=== PATIENT | female | born 1970 | race Caucasian/White ===

== ENCOUNTER → 2018-01-24 | Outpatient (CLI) | payer OTHER ==
[~2018-01-24] MED LIST: MULT-506 PO
== END | disposition home or self-care (01) ==
LOC: C.PAPS 18:53
PROVIDERS: ATTEND Obstetrics & Gynecology
DX: Z01.411 Encounter for gynecological examination (general) (routine) with abnormal findings (principal); R87.612 Low grade squamous intraepithelial lesion on cytologic smear of cervix (LGSIL)

== ENCOUNTER 2024-01-13 13:41 | Inpatient (IN) ==
[2024-01-13 14:19] LABS: Basophils # (auto) 0.05 K/uL (0.00-0.20); Basophils % (auto) 0.2 %; Eosinophils # (auto) 0.03 K/uL (0.00-0.50); Eosinophils % (auto) 0.1 %; Hematocrit (blood only) 44.4 % (37.0-47.0); Hemoglobin 15.1 g/dl (12.0-16.0); Immature Granulocytes # (auto) 0.12 K/uL (0.01-0.20); Immature Granulocytes % (auto) 0.6 %; Lymphocytes % (auto) 8.7 %; Mean Corpuscular Hemoglobin 28.4 pg (25.0-34.0); Mean Corpuscular Volume 83.6 fL (80.0-100.0); Monocytes # (auto) 1.58 K/uL (0.11-0.59); Monocytes % (auto) 7.7 %; Neutrophils # (auto) 17.01 K/uL (1.40-6.50); Neutrophils % (auto) 82.7 %; Platelet Count 280 K/uL (130-400); RDW Coefficient of Variation 11.9 % (11.5-14.5); RDW Standard Deviation 35.8 fL (36.4-46.3); Red Blood Count 5.31 M/uL (4.20-5.40); White Blood Count 20.59 K/ul (4.8-10.8)
--- NOTE | 2024-01-13 14:21 | Emergency Department Note ---
Impression & Plan Abdominal pain, RLQ, Leukocytosis, Acute appendicitis with perforation and localized peritonitis ED Provider Note HISTORY OF PRESENT ILLNESS: Patient is a 53-year-old female presenting with right lower quadrant abdominal pain. Patient reports that yesterday she had a dull pain in her right lower quadrant that she did not think much of, as she was vomiting for most of the day. Reports that yesterday she had multiple episodes of vomiting and dry heaving. Denies any diarrhea. Reports that today she woke up and has had increased pain in her right lower quadrant. Reports significant pain with any sort of movement or walking. States that she has felt like she has had to have a bowel movement but has been unable to. Denies any vaginal bleeding or discharge. She reports an abdominal surgical history significant for , but denies any appendectomy or cholecystectomy. Denies any fevers at home. She last tried drinking some Pedialyte around 9 AM this morning. She tried taking some simethicone for the pain and Dramamine for her nausea, without any relief of symptoms. Currently describes the pain as 7 out of 10 and describes it as a sharp constant pressure sensation. Reports the pain does radiate slightly into her right low back. ROS: as above PHYSICAL EXAM: Constitutional: Patient appears in no acute distress. HENT: Head: Normocephalic and atraumatic. Eyes: EOMI, PERRL Mouth/Throat: Mucous membranes moist. Neck: Trachea midline. Neck supple. Cardiovascular: Tachycardic with regular rhythm. No murmurs, rubs or gallops. Intact distal pulses. Pulmonary/Chest: No respiratory distress. Breath sounds clear and equal bilaterally. No wheezes or rales. Abdominal: Abdomen soft. RLQ TTP with guarding. Musculoskeletal: No edema, tenderness or deformity noted. Skin: Warm and dry. No rash, erythema, pallor or cyanosis Psychiatric: Appropriate mood and affect for situation. Neurological: Alert and keenly responsive. CN II-XII grossly intact, moving all extremities equally and fully. MDM: - Vitals signs showed tachycardia - History obtained via patient. History as above. - Chronic conditions affecting care: None - Differential diagnoses include, but are not limited to: Aortic aneurysm; appendicitis; diverticulitis; ovarian cyst; ovarian torsion; ureteral calculi - Order placed for continuous cardiac monitoring. At this time, monitor showed rate of 82 bpm with normal sinus rhythm, per my interpretation. - External medical records reviewed. - Laboratory workup interpreted by myself showed leukocytosis (WBC 20.59) with left shift; slight hyponatremia (Na 133); elevated total bilirubin (1.7); normal lactate; normal lipase; negative hCG - CT abdomen/pelvis with IV contrast showed severe acute appendicitis with apparent mucosal discontinuity near the appendiceal tip concerning for perforation. - Patient given 1L NS and 4 mg IV zofrna for symptoms on arrival. Ordered 50 mcg IV fentanyl for pain, but patient had declined. - Given IV zosyn for antibiotic coverage. 1g IV tylenol ordered for pain control. - Discussed case with Fabiana Ahumada PA-C with general surgery, at 15:05. Plan to come see patient. They saw the patient and reported that they are planning to take the patient to the OR at 15:35. - Patient taken to the OR with general surgery service for appendectomy. ASSESSMENT AND PLAN: Diagnosis: Right lower quadrant abdominal pain; leukocytosis; severe acute appendicitis with perforation and localized peritonitis Plan: to OR Past Med/Surg History Problem List (Updated 01/13/24 @ 15:35 by LORE Hooker) Acute appendicitis Surgical History (Updated 01/13/24 @ 15:47 by Skyla Osullivan RN) History of tubal ligation History of tonsillectomy History of History of endometrial ablation History of rhinoplasty Social History Smoking Status: Never smoker Feels Safe at Home: Yes Allergies Allergies Allergy/AdvReac Type Severity Reaction Status Date / Time codeine AdvReac Unknown VOMITING Verified 02/13/16 11:11 Home Meds Home Medications Medication Instructions Recorded Confirmed Multivitamin 1 tab PO QAM #0 tabs 01/28/16 Results & Data (ED) Vital Signs Vital Signs - 24 hr 01/13/24 13:46 01/13/24 14:04 01/13/24 14:33 Temperature 36.8 C Temperature Source Temporal Artery Scan Pulse Rate 109 H 77 Pulse Rate from SpO2 Sensor 76 Pulse Rhythm Regular Pulse Strength Normal Respiratory Rate 20 18 Respiratory Effort / Characteristics Non-Labored Spontaneous Respiratory Depth Normal Blood Pressure 110/62 Blood Pressure Mean 78 Pulse Oximetry 99 99 99 Oxygen Delivery Method Room Air Room Air Sepsis Recent Fever Within 48 Hours No Sepsis New/Unexplained Change in Mental Status N/A Sepsis Action Taken by Nursing No Action Required 01/13/24 14:45 01/13/24 15:01 01/13/24 15:18 Temperature Temperature Source Pulse Rate 82 92 H Pulse Rate from SpO2 Sensor Pulse Rhythm Pulse Strength Respiratory Rate 15 Respiratory Effort / Characteristics Respiratory Depth Blood Pressure 109/68 Blood Pressure Mean 82 Pulse Oximetry 99 Oxygen Delivery Method Sepsis Recent Fever Within 48 Hours Sepsis New/Unexplained Change in Mental Status Sepsis Action Taken by Nursing Laboratory Data 01/13/24 14:00 01/13/24 14:00 Lab Results 01/13/24 Range/Units 14:00 WBC 20.59 H (4.8-10.8) K/ul RBC 5.31 (4.20-5.40) M/uL Hgb 15.1 (12.0-16.0) g/dl Hct 44.4 (37.0-47.0) % MCV 83.6 (80.0-100.0) fL MCH 28.4 (25.0-34.0) pg MCHC 34.0 (32.0-36.0) g/dL RDW Std Deviation 35.8 L (36.4-46.3) fL RDW Coeff of Mark 11.9 (11.5-14.5) % Plt Count 280 (130-400) K/uL MPV 10.0 (9.4-12.4) fL Immature Gran % (Auto) 0.6 % Neut % (Auto) 82.7 % Lymph % (Auto) 8.7 % Duchesne % (Auto) 7.7 % Eos % (Auto) 0.1 % Baso % (Auto) 0.2 % Neut # (Auto) 17.01 H (1.40-6.50) K/uL Lymph # (Auto) 1.80 (1.20-3.40) K/uL Duchesne # (Auto) 1.58 H (0.11-0.59) K/uL Eos # (Auto) 0.03 (0.00-0.50) K/uL Baso # (Auto) 0.05 (0.00-0.20) K/uL Immature Gran # (Auto) 0.12 (0.01-0.20) K/uL PT 11.4 (9.0-12.0) Seconds INR 1.1 (0.9-1.1) Sodium 133 L (136-145) mmol/L Potassium 3.9 (3.5-5.1) mmol/L Chloride 97 L (98-107) mmol/L Carbon Dioxide 27 (21-32) mmol/L Anion Gap 9 (3-11) BUN 10 (6-23) mg/dl Creatinine 0.97 (0.6-1.2) mg/dl Est Cr Clr Drug Dosing 66.9 ml/min Est GFR ( Amer) 76.7 ml/min Est GFR (Non-Af Amer) 66.2 ml/min BUN/Creatinine Ratio 10.3 (10-20) Glucose 94 (70-99(Fasting)) mg/dl Lactate 1.1 (0.4-2.0) mmol/L Calcium 10.3 (8.6-10.3) mg/dl Total Bilirubin 1.7 H (0.2-1.0) mg/dl AST 17 (13-39) U/L ALT 11 (7-52) U/L Alkaline Phosphatase 40 (34-104) U/L Total Protein 7.6 (6.0-8.3) gm/dl Albumin 4.7 (3.4-5.0) gm/dl Globulin 2.9 (2.5-4.0) gm/dl Albumin/Globulin Ratio 1.6 (0.9-2) Lipase 19 (11-82) U/L HCG, Qual Negative (Negative) Administered Medications Discontinued Medications Fentanyl Citrate (Fentanyl Citrate Pf 100 Mcg/2 Ml Vial) 50 mcg IV NOW STA Stop: 01/13/24 14:07 Last Admin: 01/13/24 14:41 Dose: Not Given Documented By: CHIO Sodium Chloride (Nss) 1,000 mls @ 999 mls/hr IV .Q1H1M ONE Stop: 01/13/24 15:06 Last Admin: 01/13/24 14:25 Dose: 999 mls/hr Documented By: CHIO Acetaminophen (Ofirmev) 1,000 mg in 100 mls @ 400 mls/hr IV NOW STA Stop: 01/13/24 15:19 Last Admin: 01/13/24 15:27 Dose: 400 mls/hr Documented By: CHIO Ioversol (Optiray 320 100ml) 94 ml IV ONCE ONE Stop: 01/13/24 14:44 Last Admin: 01/13/24 14:44 Dose: 94 ml Documented By: SELINA Ondansetron HCl (Ondansetron Inj 2 Mg/Ml 2 Ml Vial) 4 mg IV NOW STA Stop: 01/13/24 14:07 Last Admin: 01/13/24 14:25 Dose: 4 mg Documented By: CHIO Imaging Data Radiologist's Impression: Abdomen/Pelvis CT 01/13/24 14:18 CT SCAN OF THE ABDOMEN AND PELVIS WITH IV CONTRAST CLINICAL HISTORY: Right lower quadrant abdominal pain. COMPARISON STUDY: Pelvic ultrasound dated 01/05/2018. TECHNIQUE: Following the IV administration of 94 cc of Optiray 320, CT scan of the abdomen and pelvis is performed from the lung bases to the proximal femora. Images are reviewed in the axial, sagittal, and coronal planes. IV contrast was administered without complication. A dose lowering technique was utilized adhering to the principles of ALARA. CT DOSE: 918.83 mGy.cm FINDINGS: Lung bases: The heart is normal in size noting a small pericardial effusion. There are trace pleural effusions with dependent atelectasis. Liver: The contrast-enhanced liver is normal in size, contour, and attenuation. There is no intrahepatic biliary ductal dilatation. The hepatic veins and portal veins are patent. Gallbladder: Unremarkable. Spleen: Normal in size and attenuation. Pancreas: Unremarkable. Adrenal glands: Unremarkable. Kidneys: The contrast enhanced kidneys are normal in size and without hydronephrosis. The kidneys enhance symmetrically. Abdominal vasculature: The abdominal aorta is normal in course and caliber. Bowel: There is no bowel obstruction. Mild wall thickening and edema of the cecum is likely related to adjacent appendicitis. The appendix is dilated and fluid-filled, measuring up to 14 mm seen on image #232. The appendiceal wall is thickened and hyperemic with periappendiceal inflammation and fluid. Findings are consistent with acute appendicitis. There is discontinuity of the appendiceal wall at the tip seen on image #20 and 18. Perforation is not excluded. No organized peripancreatic fluid collection is seen to indicate abscess. Peritoneum: There is a small volume of free fluid in the cul-de-sac, as well as free fluid in the pelvis. No intraperitoneal free air is seen. There is a fat- containing umbilical hernia. Lymphadenopathy: None. Pelvic viscera: The bladder, uterus, and adnexa are normal as visualized. Skeletal structures: Mild degenerative change is noted in the spine. No lytic or blastic lesions are seen. IMPRESSION: 1. Severe acute appendicitis. 2. There is apparent mucosal discontinuity near the appendiceal tip. Findings are suspicious for perforation. 3. No organized fluid collection is seen to suggest abscess. 4. Wall thickening and edema of the cecum is likely related to adjacent appendicitis. 5. Free fluid in the right lower quadrant and pelvis is likely reactive. 6. Trace pleural effusions. 7. Additional findings as above. ACT 112: Negative or not required by law. Electronically signed by: Chandana Mcbride M.D. 01/13/2024 3:03 PM Discharge Plan Visit Data Chief Complaint: Abdominal Pain Stated Complaint: ABD PAIN, SEVERE ED Provider: Anastasiya London Discharge Problem: Abdominal pain, RLQ, Leukocytosis, Acute appendicitis with perforation and localized peritonitis Discharge Instructions Interventions: ED Discharge Assessment Last Done: 01/13/24 15:42 Forms Stand Alone Forms: Nephros Prescriptions Prescriptions: No Action Multivitamin tablet 1 tab PO QAM Qty: 0 Referrals Referrals: PCP,NO [Primary Care Provider] -
[2024-01-13] MEDS: ONDANSETRON INJ 2 MG/ML 2 ML VIAL IV STA (14:25)
[2024-01-13] MEDS: SODIUM CHLORIDE 0.9% 1,000 ML IV ONE (14:25)
[2024-01-13] MEDS ORDERED: PIPERACILLIN/TAZOBACTAM 4.5 GM/100 ML BAG IV ONE (14:28)
[2024-01-13 14:30] LABS: Pregnancy Test, Serum Negative (Negative)
[2024-01-13 14:34] LABS: Albumin Globulin Ratio 1.6 (0.9-2); Albumin Level 4.7 gm/dl (3.4-5.0); BUN Creatinine Ratio 10.3 (10-20); Bilirubin,Total 1.7 mg/dl (0.2-1.0); Calcium 10.3 mg/dl (8.6-10.3); Creatinine Clr Calc Pharmacy 66.9 ml/min; Est GFR (African American) 76.7 ml/min; Est GFR (Non-African American) 66.2 ml/min; Globulin 2.9 gm/dl (2.5-4.0); Potassium 3.9 mmol/L (3.5-5.1); Total Protein 7.6 gm/dl (6.0-8.3)
[2024-01-13] MEDS: fentaNYL citrate PF 100 MCG/2 ML VIAL IV STA (14:41)
[2024-01-13] MEDS: OPTIRAY 320 100ml IV ONE (14:44)
[2024-01-13 14:50] LABS: INR 1.1 (0.9-1.1); Prothrombin Time 11.4 Seconds (9.0-12.0)
--- NOTE | 2024-01-13 15:04 | CT Scan Report ---
CT SCAN OF THE ABDOMEN AND PELVIS WITH IV CONTRAST CLINICAL HISTORY: Right lower quadrant abdominal pain. COMPARISON STUDY: Pelvic ultrasound dated 01/05/2018. TECHNIQUE: Following the IV administration of 94 cc of Optiray 320, CT scan of the abdomen and pelvi s is performed from the lung bases to the proximal femora. Images are reviewed in the axial, sagittal , and coronal planes. IV contrast was administered without complication. A dose lowering technique wa s utilized adhering to the principles of ALARA. CT DOSE: 918.83 mGy.cm FINDINGS: Lung bases: The heart is normal in size noting a small pericardial effusion. There are trace pleural effusions with dependent atelectasis. Liver: The contrast-enhanced liver is normal in size, contour, and attenuation. There is no intrahepa tic biliary ductal dilatation. The hepatic veins and portal veins are patent. Gallbladder: Unremarkable. Spleen: Normal in size and attenuation. Pancreas: Unremarkable. Adrenal glands: Unremarkable. Kidneys: The contrast enhanced kidneys are normal in size and without hydronephrosis. The kidneys enh ance symmetrically. Abdominal vasculature: The abdominal aorta is normal in course and caliber. Bowel: There is no bowel obstruction. Mild wall thickening and edema of the cecum is likely related t o adjacent appendicitis. The appendix is dilated and fluid-filled, measuring up to 14 mm seen on monika ge #232. The appendiceal wall is thickened and hyperemic with periappendiceal inflammation and fluid. Findings are consistent with acute appendicitis. There is discontinuity of the appendiceal wall at t he tip seen on image #20 and 18. Perforation is not excluded. No organized peripancreatic fluid colle ction is seen to indicate abscess. Peritoneum: There is a small volume of free fluid in the cul-de-sac, as well as free fluid in the pel vis. No intraperitoneal free air is seen. There is a fat-containing umbilical hernia. Lymphadenopathy: None. Pelvic viscera: The bladder, uterus, and adnexa are normal as visualized. Skeletal structures: Mild degenerative change is noted in the spine. No lytic or blastic lesions are seen. IMPRESSION: 1. Severe acute appendicitis. 2. There is apparent mucosal discontinuity near the appendiceal tip. Findings are suspicious for perf oration. 3. No organized fluid collection is seen to suggest abscess. 4. Wall thickening and edema of the cecum is likely related to adjacent appendicitis. 5. Free fluid in the right lower quadrant and pelvis is likely reactive. 6. Trace pleural effusions. 7. Additional findings as above. ACT 112: Negative or not required by law. Electronically signed by: Chandana Mcbride M.D. 01/13/2024 3:03 PM
[2024-01-13] MEDS: ACETAMINOPHEN 1,000 MG/100 ML VIAL IV STA (15:27)
[2024-01-13] MEDS ORDERED: MIDAZOLAM HCL 1 MG/ML 2ML VIAL ONE (15:35)
[2024-01-13] MEDS ORDERED: fentaNYL citrate PF 100 MCG/2 ML VIAL ONE ×2 (15:35→16:50)
[2024-01-13] MEDS ORDERED: LIDOCAINE 2% 2 ML VIAL/AMP(20MG/ML) INFIL ONE (15:37)
[2024-01-13] MEDS ORDERED: ROCURONIUM BROMIDE 10 MG/ML 5 ML VIAL IV ONE (15:37)
[2024-01-13] MEDS ORDERED: PROPOFOL IV EMULSION 10 MG/ML 20 ML VIAL IV ONE (15:37)
[2024-01-13] MEDS ORDERED: DEXAMETHASONE SOD INJ 4 MG/ML VIAL ONE (15:37)
[2024-01-13] MEDS ORDERED: ONDANSETRON INJ 2 MG/ML 2 ML VIAL ONE (15:37)
--- NOTE | 2024-01-13 15:41 | History & Physical Report ---
Date of Service January 13, 2024 Assessment & Plan (1) Acute appendicitis: Plan: On exam patient is no acute distress, VSS afebrile, abdomen is nondistended soft, TTP LLQ with rebound tenderness to right, no signs of peritonitis. WBC elevated at 20 CT scan reading acute appendicitis reviewed CT result with patient and recommending an appendectomy. The patient will be scheduled for a urgent laparoscopic appendectomy with visual presentation manager surgeon Dr Stone RIsks of procedure reviewed and included infection, injury to other organs, need for further surgery, bleeding, possible drain placement, anesthesia complications and . Procedure explained and questions answered. Keep NPO IV Fluids for hydration IV antiemetic PRN IV antibiotics was given zosyn in ER IV analgesic PRN Timing of OR procedure will depend on OR availability. History of Present Illness Chief Complaint: abdominal pain , nausea , vomiting Primary Care Provider: NO PCP Patient is a pleasant 53 yo female with type 2 diabetes that presented to the [facility] ER today with c/o nausea , vomiting and abdominal pain. Reports yesterday she had multiple episodes of vomiting, fevers, and abdominal pain. She thought she felt like she has had to have a bowel movement but only passed a small amount. Past surgical hx for . Denies blood thinners, has been NPO since Wednesday and took some small sips of water this AM. She does report taking estrogen and progesterone and Mounjaro. Allergy to codeine which makes her vomit. Allergies Allergy/AdvReac Type Severity Reaction Status Date / Time codeine AdvReac Unknown VOMITING Verified 01/13/24 15:59 Pain meds AdvReac Vomiting Uncoded 01/13/24 15:59 Home Medications Medication Instructions Recorded Confirmed Type Tirzepatide Sofía 1 dose INJ .WEEKLY 01/13/24 History cyclobenzaprine 10 mg tablet 10 mg PO TID PRN Muscle Spasm 01/13/24 01/13/24 History estradiol 0.01% (0.1 mg/gram) 1 applic vaginal UD 01/13/24 01/13/24 History vaginal cream estradiol 0.1 mg/24 hr semiweekly 1 patch topical 2XWK 01/13/24 01/13/24 History transdermal patch (Flora) progesterone micronized 100 mg 100 mg PO DAILY 01/13/24 01/13/24 History capsule testosterone 1 % (25 mg/2.5 gram) 1 packet topical 3XWK PRN .. 01/13/24 01/13/24 History transdermal gel packet Past Med/Surg History Problem List (Updated 01/13/24 @ 15:35 by LORE Hooker) Acute appendicitis Surgical History (Updated 01/13/24 @ 15:47 by Skyla Osullivan RN) History of tubal ligation History of tonsillectomy History of History of endometrial ablation History of rhinoplasty Social History Smoking Status: Never smoker Second Hand Exposure: No; Do You Dip or Chew Tobacco: No; Hx Alcohol Use: No Hx Substance Use: No Preferred Language: Kuwaiti Communication Ability: Effective Turf Farmer Required: No Beliefs That Will Affect Care: None Current Living Situation: Family Feels Safe at Home: Yes Safety Concerns: Feels Safe At This Time Assistive Devices: None Review of Systems Constitutional: + fever and + chills Respiratory: no dyspnea Cardiovascular: no chest pain Gastrointestinal: + abdominal pain, + nausea and + vomitin g; no change in bowel habits Genitourinary: no dysuria Musculoskeletal: no muscle weakness Integumentary: no rash Neurologic: + headache(s); no confusion Physical Exam Physical Exam: alert oriented Constitutional: well developed, cooperative and comfortable; no acute distress ENMT: external ear and nose normal, oropharynx normal Neck: trachea midline, no thyromegaly Respiratory: normal respiratory effort and able to speak in complete sentences; no respiratory distress Cardiovascular: Rate/Rhythm: + tachycardic (92) Gastrointestinal (Abdomen): Inspection/Auscultation: + abdominal surgical scar (); abdomen not distended Percussion/Palpation: + abdomen tender, + guarding and abdomen soft; abdomen not firm Musculoskeletal: no cyanosis or clubbing, extremities motor strength 5/5 Skin: no rashes, warm and dry Psychiatric: A+Ox3, euthymic affect Results & Data Results & Data Vital Signs (Past 12 Hours) Vital Signs Temp Pulse Resp BP Pulse Ox O2 Del Method 01/13/24 15:01 109/68 01/13/24 14:45 82 01/13/24 14:33 77 18 99 01/13/24 14:04 99 Room Air 01/13/24 13:46 98.2 F 109 H 20 110/62 99 Room Air Diagnostic Findings [place], [place] [phone] CT Scan Report Patient: SINTIA ADAMES Admit Date: 01/13/24 MR#: [id number] Address1: [address] [place] [address] Acct ID:[id number] Address2: Date: 1970 [facility] Zip: [id number] Age: 53 Location: ED Sex: F Room/Bed: Att Phy: Diagnosis: ABD PAIN, SEVERE Marlin Phy: PCP,NO Service Date: 01/13/24 Fam Phy: Interpreting Phy: Chandana Mcbride MDAdmit Phy: Ordering Phy: Anastasiya London MD cc: ~ CT SCAN OF THE ABDOMEN AND PELVIS WITH IV CONTRAST CLINICAL HISTORY: Right lower quadrant abdominal pain. COMPARISON STUDY: Pelvic ultrasound dated 01/05/2018. TECHNIQUE: Following the IV administration of 94 cc of Optiray 320, CT scan of the abdomen and pelvis is performed from the lung bases to the proximal femora. Images are reviewed in the axial, sagittal, and coronal planes. IV contrast was administered without complication. A dose lowering technique was utilized adhering to the principles of ALARA. CT DOSE: 918.83 mGy.cm FINDINGS: Lung bases: The heart is normal in size noting a small pericardial effusion. There are trace pleural effusions with dependent atelectasis. Liver: The contrast-enhanced liver is normal in size, contour, and attenuation. There is no intrahepatic biliary ductal dilatation. The hepatic veins and portal veins are patent. Gallbladder: Unremarkable. Spleen: Normal in size and attenuation. Pancreas: Unremarkable. Adrenal glands: Unremarkable. Kidneys: The contrast enhanced kidneys are normal in size and without hy dronephrosis. The kidneys enhance symmetrically. Abdominal vasculature: The abdominal aorta is normal in course and caliber. Bowel: There is no bowel obstruction. Mild wall thickening and edema of the cecum is likely related to adjacent appendicitis. The appendix is dilated and fluid-filled, measuring up to 14 mm seen on image #232. The appendiceal wall is thickened and hyperemic with periappendiceal inflammation and fluid. Findings are consistent with acute appendicitis. There is discontinuity of the appendiceal wall at the tip seen on image #20 and 18. Perforation is not excluded. No organized peripancreatic fluid collection is seen to indicate abscess. Peritoneum: There is a small volume of free fluid in the cul-de-sac, as well as free fluid in the pelvis. No intraperitoneal free air is seen. There is a fat- containing umbilical hernia. Lymphadenopathy: None. Pelvic viscera: The bladder, uterus, and adnexa are normal as visualized. Skeletal structures: Mild degenerative change is noted in the spine. No lytic or blastic lesions are seen. IMPRESSION: 1. Severe acute appendicitis. 2. There is apparent mucosal discontinuity near the appendiceal tip. Findings are suspicious for perforation. 3. No organized fluid collection is seen to suggest abscess. 4. Wall thickening and edema of the cecum is likely related to adjacent appendicitis. 5. Free fluid in the right lower quadrant and pelvis is likely reactive. 6. Trace pleural effusions. 7. Additional findings as above. ACT 112: Negative or not required by law. Electronically signed by: Chandana Mcbride M.D. 01/13/2024 3:03 PM Dictated: 01/13/24 1457 Transcribed: 01/13/24 145 CBC w Diff Results Results CBC w Diff Results: RBC 5.31 M/uL (4.20-5.40) 01/13/24 WBC 20.59 K/ul (4.8-10.8) H 01/13/24 Hgb 15.1 g/dl (12.0-16.0) 01/13/24 Hct 44.4 % (37.0-47.0) 01/13/24 MCV 83.6 fL (80.0-100.0) 01/13/24 MCH 28.4 pg (25.0-34.0) 01/13/24 MCHC 34.0 g/dL (32.0-36.0) 01/13/24 RDW Standard Deviation 35.8 fL (36.4-46.3) L 01/13/24 RDW Coefficient of Variation 11.9 % (11.5-14.5) 01/13/24 Plt Count 280 K/uL (130-400) 01/13/24 MPV 10.0 fL (9.4-12.4) 01/13/24 Neutrophils (%) (Auto) 82.7 % 01/13/24 Lymphocytes (%) (Auto) 8.7 % 01/13/24 Monocytes # (Auto) 1.58 K/uL (0.11-0.59) H 01/13/24 Eosinophils # (Auto) 0.03 K/uL (0.00-0.50) 01/13/24 Immature Granulocyte % (Auto) 0.6 % 01/13/24 Neutrophils # (Auto) 17.01 K/uL (1.40-6.50) H 01/13/24 Lymphocytes # (Auto) 1.80 K/uL (1.20-3.40) 01/13/24 Monocytes # (Auto) 1.58 K/uL (0.11-0.59) H 01/13/24 Eosinophils # (Auto) 0.03 K/uL (0.00-0.50) 01/13/24 Basophils # (Auto) 0.05 K/uL (0.00-0.20) 01/13/24 Immature Granulocyte # (Auto) 0.12 K/uL (0.01-0.20) 4 Supervising Physician Co-Signing Physician Notes Patient seen and examined, labs and imaging reviewed, agree with above. 53-year-old female presented with abdominal pain starting yesterday with nausea and vomiting. On exam she is febrile to 38.1, other vital signs normal. Abdomen soft, tender to palpation with guarding in the right lower quadrant and McBurney's point. WBC 20. CT scan personally viewed and interpreted agree with the assessment of significant appendicitis with possible perforation. Appears to be retrocecal. Plan for laparoscopic appendectomy Risk discussed to include but not limited to bleeding, infection, conversion open, damage surrounding structures, abscess, need for future more extensive surgery, and the risk of anesthesia PG Care Time/CCT Total # of Minutes Spent Total Time Spent with Patient: Total time spent is greater than 50% in coordination of care (as documented) at patient's floor/unit and/or counseling patient: Coding Level of Care Code 36372 INT INP/OBS CARE 40MIN Diagnoses Acute appendicitis K35.80
--- NOTE | 2024-01-13 16:02 | Anesthesiology Consultation ---
Date of Service January 13, 2024 Assessment & Plan Chart Review Chart Review: Acceptable Risk for Surgery Consults Requested none History Surgery Operation Date: 01/13/24 11:40 Proposed Procedures p Laparoscopic Appendectomy - Kye Stone DO, FACS Height/Weight Height: 5 ft 8 in Weight: 69 kg Allergies Allergy/AdvReac Type Severity Reaction Status Date / Time codeine AdvReac Unknown VOMITING Verified 01/13/24 15:59 Pain meds AdvReac Vomiting Uncoded 01/13/24 15:59 Medications Home Medications Medication Instructions Recorded Confirmed Last Taken Tirzepatide Sofía 1 dose INJ .WEEKLY 01/13/24 Unknown cyclobenzaprine 10 mg tablet 10 mg PO TID PRN Muscle Spasm 01/13/24 01/13/24 Unknown estradiol 0.01% (0.1 mg/gram) 1 applic vaginal UD 01/13/24 01/13/24 Unknown vaginal cream estradiol 0.1 mg/24 hr semiweekly 1 patch topical 2XWK 01/13/24 01/13/24 Unknown transdermal patch (Floar) progesterone micronized 100 mg 100 mg PO DAILY 01/13/24 01/13/24 Unknown capsule testosterone 1 % (25 mg/2.5 gram) 1 packet topical 3XWK PRN .. 01/13/24 01/13/24 Unknown transdermal gel packet NPO Date Last Intake of Fluids: 01/11/24 Date Last Intake of Solids: 01/11/24 Past Surgical History Surgical History (Updated 01/13/24 @ 15:47 by Skyla Osullivan RN) History of tubal ligation History of tonsillectomy History of History of endometrial ablation History of rhinoplasty Social History Smoking Status: Never smoker Do You Dip or Chew Tobacco: No Hx Alcohol Use: No Hx Substance Use: No substance use type: does not use Physical Exam Vital Signs Last Vital Signs Temp 38.1 C H 01/13/24 15:48 Pulse 87 01/13/24 15:48 Resp 18 01/13/24 15:48 BP 97/67 L 01/13/24 15:48 Pulse Ox 99 01/13/24 15:48 O2 Del Method Room Air 01/13/24 15:48 Testing Laboratory Results 01/13/24 14:00 01/13/24 14:00 PT 11.4 Seconds (9.0-12.0) 01/13/24 14:00 INR 1.1 (0.9-1.1) 01/13/24 14:00
[2024-01-13] MEDS ORDERED: HYDROmorphone INJ 2 MG/ML SYR/VIAL IV PRN (16:05)
[2024-01-13] MEDS ORDERED: fentaNYL citrate PF 100 MCG/2 ML VIAL IV PRN (16:05)
[2024-01-13] MEDS ORDERED: ONDANSETRON INJ 2 MG/ML 2 ML VIAL IV PRN ×2 (16:05→19:58)
[2024-01-13] MEDS ORDERED: ATROPINE SULFATE 0.1 MG/ML 10ML SYR IV PRN (16:05)
[2024-01-13] MEDS ORDERED: PROMETHAZINE HCL 6.25 MG in SODIUM CHLORIDE 0.9% 50 ML IV PRN (16:05)
[2024-01-13] MEDS ORDERED: ePHEDrine sulfate 50 MG/ML AMP IV PRN (16:05)
[2024-01-13] MEDS ORDERED: DROPERIDOL 5 MG/2 ML VIAL IV PRN (16:05)
[2024-01-13] MEDS: PIPERACILLIN/TAZOBACTAM 4.5 GM in DEXTROSE 5% MINI-B 100 ML IV ONE (16:40)
[2024-01-13] MEDS ORDERED: KETOROLAC 30 MG/ML VIAL ONE (16:59)
[2024-01-13] MEDS ORDERED: SUGAMMADEX SODIUM 200 MG/2 ML VIAL IV ONE (17:04)
[2024-01-13] MEDS: BUPIVACAINE 0.5 % 5 MG/1 ML MPF 30ML VIAL ONE (17:07)
--- NOTE | 2024-01-13 17:17 | Operative Report ---
PG Post Operative Report Pre & Post Diagnosis Operation Date: 01/13/24 11:40 Pre-Op Diagnosis: Acute appendicitis Post-Op Diagnosis: Acute appendicitis I identified the patient and participated in the time-out.: Yes Procedure Operation Date: 01/13/24 11:40 Actual Procedures p Laparoscopic Appendectomy(Not Applicable) - Kye Stone DO, FACS Surgeon Kye Stone DO, FACS Investigative Agent Iqra Hoyos Estimated Blood Loss 5 Findings Consistent with Post-Op Diagnosis Retrocecal appendix. Acute, suppurative appendicitis. Possible small contained microperforation. Specimens Appendix Anesthesia Type General Complications none Disposition Accompanied Patient To Recovery: No Disposition: Recovery Room Indications 53-year-old female presented with signs and symptoms of acute appendicitis, confirmed by CT with possible perforation. Plan for laparoscopic appendectomy. The risks of the procedure were discussed, all questions were answered, and the patient agreed to proceed with surgery as planned. Description of Procedure The patient was properly identified, consented, and taken to the operating room where she was placed in the supine position. General endotracheal anesthesia was induced. SCDs and a safety belt were placed. Preoperative antibiotics were administered. A Villatoro catheter was not placed. The patient's abdomen was prepped and draped in the standard sterile fashion. Surgical timeout was performed and all parties were in agreement that this was the correct patient and procedure to be performed and we continued as planned. A incision was made superior into the left of the umbilicus with electrocautery and deepened down to the fascia with blunt dissection. The Veress needle was inserted and saline drop test confirmed entry into the abdomen. The abdomen was insufflated with carbon dioxide with the patient tolerated without incident. The abdomen was then entered using the Optiview technique with a 5 mm port and a 5 mm 30 degree scope. The introducer was removed and the laparoscope was inserted and no damage from initial trocar placement was noted, no gross abnormalities were noted within the 4 quadrants the abdomen. A 12 mm port was then placed in the left lower quadrant with care not to damage the epigastric vessels, and a 5 mm port was placed in the suprapubic midline with care not to damage the bladder. The patient was placed in Trendelenburg position and rotated towards the left. The small bowel was swept away from the right lower quadrant. The cecum was grasped with an atraumatic grasper exposing the appendix. The appendix was partially retrocecal and this was mobilized. The appendix was significantly inflamed and dilated, but there was no obvious evidence of perforation. There was turbid fluid in the pelvis. There was a small punctate area of necrosis that may have indicated a contained microperforation on the antimesenteric border of the appendix. There was no gross spillage of contents. A window was created between the base of the appendix and the mesoappendix. A purple loaded endoscopic stapler was then used to divide the appendix at its base. The Sonicision was then used to divide the mesoappendix. Hemostasis was good. The appendix was placed in an Endo Catch bag and removed through the left lower quadrant port site. The right lower quadrant and pelvis was irrigated and hemostasis was found to be good. 5 mm trochars were removed under direct visualization and the abdomen was allowed to collapse. The left lower quadrant port site fascia was closed with 0 Vicryl suture utilizing the Iglesia-Heber device prior to removal of the port. The wound was irrigated, and the skin of all ports was closed with 4-0 Monocryl subcuticular sutures. Dermabond was placed over the wounds. The patient was extubated in the operating room and taken to the PACU where she recovered without apparent incident. All sponge, instrument and needle counts were correct at the conclusion of the procedure. The patient tolerated the procedure well. The nurse practitioner was present and scrubbed for the entire the case. She was critical in positioning the patient, prepping and draping, retraction and exposure, driving the laparoscope, removal of the appendix, closure of the incisions, and placement of the dressings. I attest to the content of the Intraoperative Record and any orders documented therein. Any exceptions are noted below.
--- NOTE | 2024-01-13 17:57 | Anesthesiology Progress Note ---
Date of Service January 13, 2024 Anesthesia Post Procedure Vital Signs Vital Signs: Temp Pulse Pulse Pulse Resp BP BP 01/13/24 17:45 72 18 104/58 L 01/13/24 17:35 80 20 117/58 L 01/13/24 17:25 36.4 C L 103 H 18 124/74 01/13/24 15:48 38.1 C H 87 18 01/13/24 15:18 92 H 15 01/13/24 15:01 109/68 01/13/24 14:45 82 01/13/24 14:33 77 18 01/13/24 14:04 01/13/24 13:46 36.8 C 109 H 20 110/62 BP Pulse Ox O2 Del Method O2 Flow Rate 01/13/24 17:45 100 Oxymask 4 01/13/24 17:35 100 Oxymask 4 01/13/24 17:25 100 Oxymask 6 01/13/24 15:48 97/67 L 99 Room Air 01/13/24 15:18 99 01/13/24 15:01 01/13/24 14:45 01/13/24 14:33 99 01/13/24 14:04 99 Room Air 01/13/24 13:46 99 Room Air Pain Intensity Abdomen: Pain Intensity: 2 Transfer of Care Handoff Completed per policy Notes Mental Status: alert / awake / arousable and participated in evaluation Patient Amnestic to Procedure: Yes Nausea / Vomiting: adequately controlled Pain: adequately controlled Airway Patency, RR, SpO2: stable & adequate BP & HR: stable & adequate Hydration State: stable & adequate Anesthetic Complications: no major complications apparent and Pt Satisfied with anesthetic care
[2024-01-13] MEDS ORDERED: IBUPROFEN 600 MG TAB PO PRN (19:58)
[2024-01-13] MEDS ORDERED: CYCLOBENZAPRINE HCL 10 MG TAB PO PRN (19:58)
[2024-01-13] MEDS: LACTATED RINGER'S 1,000 ML IV SCH (20:48)
[2024-01-13] MEDS: PIPERACILLIN/TAZOBACTAM 4.5 GM in DEXTROSE 5% MINI-B 100 ML IV SCH (21:49)
[2024-01-13] MEDS: KETOROLAC TROMETHAMINE 15 MG/ML VIAL IV PRN (21:52)
[2024-01-14] MEDS ORDERED: ACETAMINOPHEN 1,000 MG/100 ML VIAL IV SCH
[2024-01-14 20:13] LABS: Hematocrit (blood only) 34.6 % (37.0-47.0); Hemoglobin 11.7 g/dl (12.0-16.0); Mean Corpuscular Hemoglobin 28.5 pg (25.0-34.0); Mean Corpuscular Hgb Conc 33.8 g/dL (32.0-36.0); Mean Corpuscular Volume 84.4 fL (80.0-100.0); Mean Platelet Volume 10.6 fL (9.4-12.4); Platelet Count 223 K/uL (130-400); RDW Standard Deviation 36.5 fL (36.4-46.3); White Blood Count 18.16 K/ul (4.8-10.8)
--- NOTE | 2024-01-14 20:56 | Discharge Summary ---
Date of Service January 14, 2024 Admission HPI Per Admitting Provider Patient is a pleasant 53 yo female that presented to the [facility] ER today with c/o nausea , vomiting and abdominal pain. Reports yesterday she had multiple episodes of vomiting, fevers, and abdominal pain. She thought she felt like she has had to have a bowel movement but only passed a small amount. Past surgical hx for . Denies blood thinners, has been NPO since Wednesday and took some small sips of water this AM. She does report taking estrogen, progesterone, and Mounjaro. Allergy to codeine which makes her vomit. Principal Diagnosis acute appendicitis Discharge Exam alert oriented Constitutional well developed, cooperative and comfortable; no acute distress ENMT external ear and nose normal, oropharynx normal Neck trachea midline, no thyromegaly Respiratory normal respiratory effort and able to speak in complete sentences; no respiratory distress Cardiovascular Rate/Rhythm: regular rate Gastrointestinal (Abdomen) Inspection/Auscultation: + abdominal surgical scar (); abdomen not distended Percussion/Palpation: + abdomen tender and abdomen soft; abdomen not firm Musculoskeletal no cyanosis or clubbing, extremities motor strength 5/5 Skin no rashes, warm and dry Psychiatric A+Ox3, euthymic affect Discharge Data Allergies Allergy/AdvReac Type Severity Reaction Status Date / Time codeine AdvReac Unknown VOMITING Verified 01/13/24 15:59 Pain meds AdvReac Vomiting Uncoded 01/13/24 15:59 Procedures Performed Operation Date: 01/13/24 11:40 Actual Procedures p Laparoscopic Appendectomy(Not Applicable) - Kye Stone, , FACS Ordered Studies 01/13/24 14:18 CT Abd and Pelvis [CT abd pelvis IV con only] Stat Hospital Course (1) Acute appendicitis: Patient is a pleasant 53 yo female that presented to the [facility] ER on 01/13/24 with c/o abdominal pain, nausea, and vomiting. Her WBC were elevated at [address] scan was reading acute appendicitis. The patient was scheduled for an urgent laparoscopic appendectomy with prescription clerk lenses surgeon Dr Stone and tolerated well. She recovered in PACU and was admitted to the hospital for IV antibiotics, care and observation. Her diet was advanced and she was tolerating without n/v. Her pain was controlled with non-narcotic pain reducers. On post operative day one 01/14/24 her Wbc showed downtrending and she remained afebrile and had stable VSS. She was given discharge instructions, return precautions and follow up recommendations. She verbalized understanding and questions were answered. Total Time Total Time Spent Total Time Spent (In Minutes): 15 Discharge Plan Discharge Items Patient Disposition: Home - Self-Care Reason For Visit: S/P APPENDECOTMY Discharge Diagnosis: appendectomy Activity: As commented below Lifting: No more than 25 pounds Bathing Comment: you can shower. No soaking in pool or baths for2 weeks Exercise/Sports: Wait until after follow-up appointment Non-emergency contact: Surgeon Call non-emergency contact if: you have any medication questions, you have a fever, your temperature is above 101.5, your wound has increased redness, your wound has increased drainage and your wound pain has increased Follow-up/Referrals: Kye Stone DO, FACS [Physician] - (call office for a follow up in 2 weeks ) PCP,NO [Primary Care Provider] - Diet: Regular Addtl Attending Provider Instructions: You have surgical glue called dermabond on your surgical site incisions. You may shower with this on. This will tend to come off within a couple of weeks. Do not pick at it. You may purchase Tylenol and or Ibuprofen over the counter if needed for addition pain control over the next few days. Take per manufacturers instructions, Do not take more than 3 grams of Tylenol in 24 hours. Pending Studies at Discharge: Yes Studies:: surgical pathology Stand-Alone Forms: My [facility] Medications and DC Order Prescriptions: New oxycodone 5 mg tablet 5 - 10 mg PO .[id number]-c1l PRN (Reason: pain, for initial therapy, max 6 tabs per day) Qty: 15 0RF Continued cyclobenzaprine 10 mg tablet 10 mg PO TID PRN (Reason: Muscle Spasm) estradiol [Flora] 0.1 mg/24 hr patch semiweekly 1 patch topical 2XWK Rx Instructions: TOOK OFF TODAY estradiol 0.01 % (0.1 mg/gram) cream 1 applic VAGINAL UD testosterone 1 % (25 mg/2.5gram) gel in packet 1 packet topical 3XWK PRN (Reason: ..) progesterone micronized 100 mg capsule 100 mg PO DAILY Tirzepatide Sofía 1 dose INJ .WEEKLY Discharge Orders: Discharge Order (Routine); Ordered 01/14/24 Ordered By: Iqra Hoyos Admission Data Admit Date/Time: 01/13/24 17:18 Attending Provider: Kye Stone Admit Provider: Kye Stone Primary Care Provider: PCPFLACA Supervising Physician Co-Signing Physician Notes Patient seen and examined, labs and imaging reviewed, agree with above. 53-year-old female presented with abdominal pain starting yesterday with nausea and vomiting. On exam she is febrile to 38.1, other vital signs normal. Abdomen soft, tender to palpation with guarding in the right lower quadrant and McBurney's point. WBC 20. CT scan personally viewed and interpreted agree with the assessment of significant appendicitis with possible perforation. Appears to be retrocecal. Plan for laparoscopic appendectomy Risk discussed to include but not limited to bleeding, infection, conversion open, damage surrounding structures, abscess, need for future more extensive surgery, and the risk of anesthesia Coding Level of Care Code 44017 IN/OBS DISCH 30 MIN/LESS Diagnoses Acute appendicitis K35.80
== END 2024-01-14 15:48 | disposition home or self-care (01) | DRG 399 ==
LOC: ED 13:41 → OR 15:32 → 3N 17:18